=== PATIENT | male | born 1990 | race Caucasian/White ===

== ENCOUNTER 2016-09-15 05:56 | Emergency (ER) | payer MEDICAID ==
[~2016-09-15] VITALS: Ht 180.3 cm; Wt 77.1 kg
[2016-09-15 06:54] VITALS: BP 131/83
[2016-09-15] MEDS ORDERED: IBUPROFEN 800 MG TAB PO ONE (07:30)
== END 2016-09-15 07:45 | disposition home or self-care (01) ==
LOC: ER 06:15
DX: S29.012A Strain of muscle and tendon of back wall of thorax, initial encounter (principal); F10.10 Alcohol abuse, uncomplicated; J20.9 Acute bronchitis, unspecified; F17.210 Nicotine dependence, cigarettes, uncomplicated; V49.59XA Passenger injured in collision with other motor vehicles in traffic accident, initial encounter; Y93.89 Activity, other specified; Y99.8 Other external cause status; Y92.410 Unspecified street and highway as the place of occurrence of the external cause
CPT/HCPCS: 70450

== ENCOUNTER 2021-11-19 06:06 | Emergency (ER) | payer MEDICAID ==
[~2021-11-19] VITALS: Ht 175.3 cm; Wt 75.0 kg
[2021-11-19] MEDS ORDERED: SULF800T7 PO (07:13)
[2021-11-19] MEDS ORDERED: IBUP800T27 PO (07:13)
[2021-11-19] MEDS ORDERED: cefTRIAXone SOD 1,000 MG VL IM ONE (07:15)
[2021-11-19] MEDS ORDERED: KETOROLAC TROMETH 60MG/2ML VIAL IM ONE (07:15)
[2021-11-19 07:33] VITALS: BP 149/89
[2021-11-19] MEDS ORDERED: LIDOCAINE 1% HCL (LOCAL ANESTH.) INJ 20ML MDV ONE (07:37)
== END 2021-11-19 08:31 | disposition home or self-care (01) ==
LOC: ER 06:06
DX: L03.011 Cellulitis of right finger (principal); F17.210 Nicotine dependence, cigarettes, uncomplicated; Z79.1 Long term (current) use of non-steroidal anti-inflammatories (NSAID); Z79.899 Other long term (current) drug therapy
CPT/HCPCS: 96372; 99284; J0696; J1885; J2001

== ENCOUNTER 2024-04-14 13:40 | Emergency (ER) | payer MEDICAID ==
[~2024-04-14] VITALS: Ht 177.8 cm; Wt 71.6 kg
[~2024-04-14 13:40] MED LIST: IBUP-1456 PO; SULF800T23 PO
--- NOTE | 2024-04-14 15:10 | ED.PDOC ---
History of Present Illness(SKN HPI Comments 34Y M with PMHx staph infection presents to ED for chief complaint wound check. Pt states he found a small bump on his lt thumb 2 days ago and placed a bandaid on it. When he removed the bandaid yesterday, pt states the bump popped and the skin grew back with an increase in liquid. Pt also has lt thumb pain. Pt states he was admitted at [facility] in the past and was given abx. Chief Complaint: Wound Check Time Seen by MD: 14:49 Primary Care Provider: [facility] History of Present Illness: Medications, Allergies Allergies: Coded Allergies: NO KNOWN ALLERGIES (Unverified , 09/15/16) Home Meds Active Scripts Ibuprofen (Ibuprofen) 800 Mg Tab, 1 TAB PO TID PRN, #30 TAB 0 Refills Prov:QING MENENDEZ 11/19/21 Sulfamethoxazole W/Trimethopri (Trimethoprim/Sulfamethoxa) 1 Tab Tab, 1 TAB PO BID for 7 Days, #14 TAB 0 Refills Prov:QING MENENDEZ 11/19/21 Information Source: Patient Mode of Arrival: Ambulatory Severity: Mild Timing: Days Duration: Since onset Location: Other (lt thumb) Mechanism: Spontaneous Onset Occurence: Indoors Object: None Condition of Object: None Retained Foreign Body: No Wound Type: Unknown Immunization Status of Animal: Current Tetanus: UTD History of: None Associated Signs and Symptoms: Other Past Medical History Past Medical History (Other): Staph infection Surgical History: Denies all surgeries Family History Family History: Unknown Social History Smoker: Cigarettes, Less Than 1 Pack/Day Alcohol: Denies ETOH Use Drugs: Marijuana Lives In: Home Constitutional: denies: chills, diaphoresis, fatigue, fever, malaise, sweats, weakness, others EENTM: denies: blurred vision, double vision, ear bleeding, ear discharge, ear drainage, ear pain, ear ringing, eye pain, eye redness, hearing loss, mouth pain, mouth swelling, nasal discharge, nose bleeding, nose congestion, nose pain, photophobia, tearing, throat pain, throat swelling, voice changes, others Respiratory: denies: cough, hemoptysis, orthopnea, SOB at rest, shortness of breath, SOB with excertion, stridor, wheezing, others Cardiovascular: denies: chest pain, dizzy spells, diaphoresis, Dyspnea on exertion, edema, irregular heart beat, left arm pain, lightheadedness, palpitations, PND, syncope, others Gastrointestinal: denies: abdomen distended, abdominal pain, blood streaked bowels, constipated, diarrhea, dysphagia, difficulty swallowing, hematemesis, melena, nausea, poor appetite, poor fluid intake, rectal bleeding, rectal pain, vomiting, others Genitourinary: denies: burning, dysuria, flank pain, frequency, hematuria, incontinence, penile discharge, penile sore, pain, testicle pain, testicle swelling, urgency, others Neurological: denies: dizziness, fainting, headache, left sided numbness, left sided weakness, numbness, paresthesia, pre-existing deficit, right sided numbness, right sided weakness, seizure, speech problems, tingling, tremors, weakness, others Musculoskeletal: reports: others (lt thumb pain); denies: back pain, gout, joint pain, joint swelling, muscle pain, muscle stiffness, neck pain Integumetry: reports: wounds (lt thumb); denies: bruises, change in color, change in hair/nails, dryness, laceration, lesions, lumps, rash, others Allergic/Immunocompromised: denies: Difficulty Healing, Frequent Infections, Hives, Itching, others Hematologic/Lymphatic: denies: anemia, blood clots, easy bleeding, easy bruising, swollen glands, others Endocrine: denies: excessive hunger, excessive sweating, excessive thirst, excessive urination, flushing, intolerance to cold, intolerance to heat, unexplained weight gain, unexplained weight loss, others Psychiatric: denies: anxiety, bipolar disorder, depression, hopeless, panic disorder, schizophrenia, sleepless, suicidal, others All Other Systems: Reviewed and Negative Physical Exam General Appearance: Moderate Distress, Normal HEENT: Normal ENT Inspection, Pharynx Normal, TMs Normal Neck: Full Range of Motion, Non-Tender, Normal, Normal Inspection Respiratory: Chest Non-Tender, Lungs Clear, No Accessory Muscle Use, No Respiratory Distress, Normal Breath Sounds Cardiovascular: No Edema, No JVD, No Murmur, No Gallop, Normal Peripheral Pulses, Regular Rate/Rhythm Breast Exam: Deferred Gastrointestinal: No Organomegaly, Non Tender, No Pulsatile Mass, Normal Bowel Sounds, Soft Genitalia: Deferred Pelvic: Deferred Rectal: Deferred Extremities: No calf tenderness, Normal capillary refill, Normal inspection, Normal range of motion, Non-tender, No pedal edema Musculoskeletal : Apperance: Normal Neurologic: Alert, 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 Was a procedure done?: No Differential Diagnosis (INTG) Differential Diagnosis: Cellulitis, Hematoma Differential Diagnosis: Abscess X-Ray, Labs, Meds, VS Vital Signs Date Time Temp Pulse Resp B/P (MAP) Pulse Ox O2 Delivery O2 Flow Rate FiO2 04/14/24 16:07 98.2 87 18 130/82 (98) 100 98.2 04/14/24 13:57 97.8 112 18 142/89 (106) 98 Lab Test 04/14/24 14:50 Range/Units White Blood Count 7.3 4.4-10.8 10^3/uL Red Blood Count 4.87 4.5-5.90 10^6/uL Hemoglobin 14.6 13.5-17.5 g/dL Hematocrit 41.8 41.0-53.0 % Mean Corpuscular Volume 85.7 80.0-100.0 fL Mean Corpuscular Hemoglobin 30.0 28.0-32.0 pg Mean Corpuscular Hemoglobin Concent 35.0 32.0-36.0 g/dL Red Cell Distribution Width 12.6 11.8-14.3 % Platelet Count 271 140-450 10^3/uL Mean Platelet Volume 8.0 6.9-10.8 fL Neutrophils (%) (Auto) 68.4 37.0-80.0 % Lymphocytes (%) (Auto) 20.6 10.0-50.0 % Monocytes (%) (Auto) 6.1 0.0-12.0 % Eosinophils (%) (Auto) 4.4 0.0-7.0 % Basophils (%) (Auto) 0.5 0.0-2.0 % Neutrophils # (Auto) 5.0 1.6-8.6 10 ^3/uL Lymphocytes # (Auto) 1.5 0.4-5.4 10 ^3/uL Monocytes # (Auto) 0.5 0-1.3 10 ^3/uL Eosinophils # (Auto) 0.3 0-0.8 10 ^3/uL Basophils # (Auto) 0 0-0.2 10 ^3/uL Nucleated Red Blood Cells 0.0 % Sodium Level 141 136-145 mmol/L Potassium Level 4.4 3.5-5.1 mmol/L Chloride Level 104 98-107 mmol/L Carbon Dioxide Level 32 H 20-31 mmol/L Anion Gap 5 5-15 Blood Urea Nitrogen 11 9-23 mg/dL Creatinine 1.04 0.700-1.30 mg/dL Glomerular Filtration Rate Calc 96 >90 mL/min BUN/Creatinine Ratio 10.6 10.0-20.0 Serum Glucose 91 74-106 mg/dL Calcium Level 10.1 8.7-10.4 mg/dL Current Medications Medications (Trade) Dose Ordered Sig/Whit Route Start Time Stop Time Status Last Admin Ceftriaxone Sodium 50 ml @ 100 mls/hr ONCE ONCE IV 04/14/24 15:00 04/14/24 15:29 DC 04/14/24 15:50 Patient alert. Redness of the left thumb. There is liquid encapsulated lesion left thumb. Vitals stable. Answering all questions. No sign of any infection. Mild redness. No swelling of the finger. Tracking of redness on his arm. Hands not swollen. No sepsis. WBC within normal limits. Hemoglobin within normal limits. Heart rate in the 80s. Saturation pristine on room air. He does have a history of anxiety. Was given Rocephin. Was given clindamycin. Reviewed his history. Explained to the patient. Continue cardiac monitoring. Patient states that he is doing well. Insists on going home. Was given prescription of clindamycin amoxicillin antibiotic. No leg swelling. No shortness a breath. No chest pain. Was told to follow up with his primary care physician. Was told to come back if there is any problem. Time of 1ST Reevaluation: 15:19 Reevaluation 1ST: Improved Time of 2ND Reevaluation: 16:29 Reevaluation 2ND: Improved Patient Education/Counseling: Diagnosis, Treatment Family Education/Counseling: No Family Present Additional Information I reviewed the following notes from patient's past medical encounters: [facility] ER 11/19/2021 and 09/15/2016 The following tests were ordered, and results were reviewed by me: CBC, BMP I discussed treatment and results with medical personnel and hospitalist. Departure 1 Departure Time of Disposition: 15:12 Impression: Primary Impression: Cellulitis of left thumb Disposition: HOME / SELF CARE / HOMELESS Condition: Good e-Prescriptions Clindamycin Hcl (Clindamycin Hcl) 300 Mg Cap 1 CAP PO TID for 10 Days, #30 CAP Prov: LEA PAULA MD 04/14/24 Amoxicillin Trihydrate (Amoxicillin) 500 Mg Tab 1 TAB PO TID for 10 Days, #30 TAB Prov: LEA PAULA MD 04/14/24 Discharged With: Self Critical Care Note Critical Care Time?: No Stability Stability form required: No Heart Score Heart Score: Heart Score Response (Comments) Value History N/A 0 EKG N/A 0 Age N/A 0 Risk Factors N/A 0 Troponin N/A 0 Total 0 I personally scribed for LEA PAULA MD ([email or web address]) on 04/14/24 at 15:10. Electronically submitted by Safia Benedict ([employer]). I personally scribed for LEA PAULA MD ([email or web address]) on 04/14/24 at 16:02. Electronically submitted by Safia Benedict ([employer]). LEA PAULA MD Apr 14, 2024 15:10
[2024-04-14 15:21] LABS: Basophils # (auto) 0 10 ^3/uL (0-0.2); Basophils % (auto) 0.5 % (0.0-2.0); Eosinophils # (auto) 0.3 10 ^3/uL (0-0.8); Eosinophils % (auto) 4.4 % (0.0-7.0); Hematocrit 41.8 % (41.0-53.0); Hemoglobin 14.6 g/dL (13.5-17.5); Lymphocytes # (auto) 1.5 10 ^3/uL (0.4-5.4); Lymphocytes % (auto) 20.6 % (10.0-50.0); Mean Corpuscular Volume 85.7 fL (80.0-100.0); Monocytes # (auto) 0.5 10 ^3/uL (0-1.3); Monocytes % (auto) 6.1 % (0.0-12.0); Neutrophils % (auto) 68.4 % (37.0-80.0); Platelet Count (auto) 271 10^3/uL (140-450); Red Blood Cells 4.87 10^6/uL (4.5-5.90); Red Cell Distribution Width 12.6 % (11.8-14.3); White Blood Cell 7.3 10^3/uL (4.4-10.8)
[2024-04-14 15:22] LABS: Chloride 104 mmol/L (98-107); Potassium 4.4 mmol/L (3.5-5.1); Sodium 141 mmol/L (136-145)
[2024-04-14 15:23] LABS: Anion Gap 5 (5-15); Calcium 10.1 mg/dL (8.7-10.4)
[2024-04-14 15:28] LABS: Glucose 91 mg/dL (74-106)
[2024-04-14 15:29] LABS: BUN/Creatinine Ratio 10.6 (10.0-20.0); Blood Urea Nitrogen 11 mg/dL (9-23)
[2024-04-14 15:44] LABS: Carbon Dioxide 32 mmol/L (20-31)
[2024-04-14] MEDS: cefTRIAXone 1GM/50ML D5W 50 ML IV ONE (15:50)
[2024-04-14 16:07] VITALS: BP 130/82; PULSE 87; RESP 18; TEMP 98.2; O2SAT 100
[2024-04-14] MEDS ORDERED: CLIN1CAP70 PO ×2 (16:29→20:52)
[2024-04-14] MEDS ORDERED: AMOX500T3 PO ×2 (16:29→20:52)
[2024-04-14] MEDS: CLINDAMYCIN 600MG IV 50 ML IV ONE (16:51)
[2024-04-14] MEDS ORDERED: SULF800T23 PO (20:52)
== END 2024-04-14 17:27 | disposition home or self-care (01) ==
LOC: ER 13:40
DX: L03.012 Cellulitis of left finger (principal); F17.210 Nicotine dependence, cigarettes, uncomplicated
CPT/HCPCS: 36415; 80048; 85025; 96365; 96367; 99284; J0696; J3490

== ENCOUNTER 2024-05-09 02:24 | Emergency (ER) | payer MEDICAID ==
[~2024-05-09] VITALS: Ht 177.8 cm; Wt 67.8 kg
[~2024-05-09 02:24] MED LIST changes: +AMOX500T3 PO; +CLIN1CAP70 PO
[2024-05-09 02:35] VITALS: BP 141/98; PULSE 99; RESP 18; O2SAT 98
--- NOTE | 2024-05-09 03:30 | ED.PDOC ---
History of Present Illness HPI Comments THIS IS A 34-YEAR-OLD MALE PRESENTS TO THE ED CHIEF COMPLAINT MEDICATION REFILL. PT STATES HIS BROTHER THREW AWAY HIS PRESCRIPTION FOR SUBOXONE THREE DAYS AGO. PT HAS HISTORY OF OPIOID USE, FEELS LIKE HE WILL START WITHDRAWING SOON. PT ANSWERING QUESTIONS APPROPRIATELY, A&OX4. DENIES NAUSEA, VOMITING, DIARRHEA, CHEST PAIN, SHORTNESS OF BREATH, ABDOMINAL PAIN, OR ANY WITHDRAWAL SYMPTOMS AT THIS TIME Chief Complaint: Withdrawal Time Seen by MD: 02:37 Primary Care Provider: [facility] Notes: Nurses Notes, Medications, Allergies Allergies: Coded Allergies: NO KNOWN ALLERGIES (Unverified , 09/15/16) Home Meds Active Scripts Clindamycin Hcl (Clindamycin Hcl) 300 Mg Cap, 1 CAP PO TID for 10 Days, #30 CAP Prov:FRANKO LUNSFORD MD 04/14/24 Amoxicillin Trihydrate (Amoxicillin) 500 Mg Tab, 1 TAB PO TID for 10 Days, #30 TAB Prov:FRANKO LUNSFORD MD 04/14/24 Sulfamethoxazole W/Trimethopri (Trimethoprim/Sulfamethoxa) 1 Tab Tab, 1 TAB PO BID for 7 Days, #14 TAB 0 Refills Prov:FRANKO LUNSFORD MD 04/14/24 Ibuprofen (Ibuprofen) 800 Mg Tab, 1 TAB PO TID PRN, #30 TAB 0 Refills Prov:QING MENENDEZ 11/19/21 Information Source: Patient Mode of Arrival: Ambulatory Past Medical History PAST MEDICAL HISTORY: Denies Past Medical History (Other): OPIOID DEPENDENCE Surgical History: Denies all surgeries Family History Family History: Reviewed,noncontributory to illness, Unknown Social History Smoker: Cigarettes, Less Than 1 Pack/Day Alcohol: Denies ETOH Use Drugs: Marijuana Lives In: Home Constitutional: denies: chills, diaphoresis, fatigue, fever, malaise, sweats, weakness, others EENTM: denies: blurred vision, double vision, ear bleeding, ear discharge, ear drainage, ear pain, ear ringing, eye pain, eye redness, hearing loss, mouth pain, mouth swelling, nasal discharge, nose bleeding, nose congestion, nose pain, photophobia, tearing, throat pain, throat swelling, voice changes, others Respiratory: denies: cough, hemoptysis, orthopnea, SOB at rest, shortness of breath, SOB with excertion, stridor, wheezing, others Cardiovascular: denies: chest pain, dizzy spells, diaphoresis, Dyspnea on exertion, edema, irregular heart beat, left arm pain, lightheadedness, palp itations, PND, syncope, others Gastrointestinal: denies: abdomen distended, abdominal pain, blood streaked bowels, constipated, diarrhea, dysphagia, difficulty swallowing, hematemesis, melena, nausea, poor appetite, poor fluid intake, rectal bleeding, rectal pain, vomiting, others Genitourinary: denies: burning, dysuria, flank pain, frequency, hematuria, incontinence, penile discharge, penile sore, pain, testicle pain, testicle swelling, urgency, others Neurological: denies: dizziness, fainting, headache, left sided numbness, left sided weakness, numbness, paresthesia, pre-existing deficit, right sided numbness, right sided weakness, seizure, speech problems, tingling, tremors, weakness, others Musculoskeletal: denies: back pain, gout, joint pain, joint swelling, muscle pain, muscle stiffness, neck pain, others Integumetry: denies: bruises, change in color, change in hair/nails, dryness, laceration, lesions, lumps, rash, wounds, others Allergic/Immunocompromised: denies: Difficulty Healing, Frequent Infections, Hives, Itching, others Hematologic/Lymphatic: denies: anemia, blood clots, easy bleeding, easy brui sing, swollen glands, others Endocrine: denies: excessive hunger, excessive sweating, excessive thirst, ex cessive urination, flushing, intolerance to cold, intolerance to heat, unexplained weight gain, unexplained weight loss, others Psychiatric: denies: anxiety, bipolar disorder, depression, hopeless, panic disorder, schizophrenia, sleepless, suicidal, others Physical Exam General Appearance: No Apparent Distress, Normal HEENT: Pharynx Normal Neck: Full Range of Motion, Non-Tender Respiratory: Chest Non-Tender, Lungs Clear, No Accessory Muscle Use, No Respiratory Distress, Normal Breath Sounds Cardiovascular: No Edema, No JVD, No Murmur, No Gallop, Normal Peripheral Pulses, Regular Rate/Rhythm Breast Exam: Deferred Gastrointestinal: No Organomegaly, Non Tender, No Pulsatile Mass, Normal Bowel Sounds, Soft Genitalia: Deferred Pelvic: Deferred Rectal: Deferred Extremities: Normal capillary refill, Normal inspection, Normal range of motion, Non-tender, No pedal edema Musculoskeletal : Apperance: Normal Neurologic: Alert, 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 Was a procedure done?: No Differential Dx Considerations may include: WITHDRAWALS X-Ray, Labs, Meds, VS Vital Signs Date Time Temp Pulse Resp B/P (MAP) Pulse Ox O2 Delivery O2 Flow Rate FiO2 05/09/24 02:35 97.6 99 18 141/98 (112) 98 X-Ray, Labs, Meds, VS Comment EXAM BENIGN VITAL SIGNS WITHIN NORMAL LIMITS PATIENT HAS BEEN WITHOUT MEDICATION X3 DAYS NO NOTED WITHDRAWAL SYMPTOMS AT THIS TIME. 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 ER RETURN PRECAUTIONS GIVEN ADVISED PATIENT TO RETURN TO THE ER FOR DIFFICULTY BREATHING SHORTNESS BREATH CHEST PAIN UNCONTROLLED DIARRHEA, VOMITING, ELEVATED HEART RATE BLOOD PRESSURE, MIGRAINE, OR ANY CONCERNING SYMPTOMS. PATIENT INDICATED UNDERSTANDING AND AGREES WITH DISCHARGE PLAN OF CARE Time of 1ST Reevaluation: 03:30 Reevaluation 1ST: Improved Patient Education/Counseling: Diagnosis, Treatment, Prognosis, Need For Follow Up Family Education/Counseling: No Family Present Departure 1 Departure Time of Disposition: 03:30 Impression: Primary Impression: Encounter for medication refill Disposition: HOME / SELF CARE / HOMELESS Condition: Stable Discharged With: Significant Other Critical Care Note Critical Care Time?: No Stability Stability form required: FARZANA Stubbs May 09, 2024 03:30
== END 2024-05-09 03:30 | disposition home or self-care (01) ==
LOC: ER 02:24
DX: F12.10 Cannabis abuse, uncomplicated (principal); F17.210 Nicotine dependence, cigarettes, uncomplicated; Z76.0 Encounter for issue of repeat prescription; Z79.899 Other long term (current) drug therapy